=== PATIENT | female | born 1945 | race Caucasian/White ===

== ENCOUNTER → 2024-08-02 09:53 | Outpatient (REF) | payer MEDICARE, BC, SELFPAY | LOC: HWRCS 09:53 | PROVIDERS: ATTENDING PHYSICIAN Family Medicine | DX: I35.1 Nonrheumatic aortic (valve) insufficiency (principal) | CPT/HCPCS: 93306 ==

== ENCOUNTER → 2024-08-15 09:48 | Outpatient (REF) | payer MEDICARE, BC, SELFPAY | LOC: HWRAD 09:48 | PROVIDERS: ATTENDING PHYSICIAN Family Medicine | DX: M81.0 Age-related osteoporosis without current pathological fracture (principal) | CPT/HCPCS: 77080 ==